=== PATIENT | male | born 1985 | race Caucasian/White ===

== ENCOUNTER 2023-11-08 18:49 | Emergency (ER) | payer SELFPAY ==
[~2023-11-08] VITALS: Ht 167.6 cm; Wt 108.6 kg
[~2023-11-08 18:49] MED LIST: NAPROSYN500 MG PO
[2023-11-08 18:56] VITALS: TEMP 97.4
[2023-11-08] MEDS ORDERED: AMOXICILLIN 50500 MG PO (19:08)
[2023-11-08] MEDS ORDERED: NORCO 325 MG-51 TAB PO (19:08)
[2023-11-08 19:25] VITALS: BP 139/98; PULSE 88
== END 2023-11-08 19:25 | disposition home or self-care (01) ==
LOC: COL.ER 18:49
DX: S02.5XXA Fracture of tooth (traumatic), initial encounter for closed fracture (principal); X58.XXXA Exposure to other specified factors, initial encounter

== ENCOUNTER 2024-01-25 16:12 | Emergency (ER) | payer SELFPAY ==
[~2024-01-25] VITALS: Ht 175.3 cm; Wt 104.5 kg
[~2024-01-25 16:12] MED LIST changes: +AMOXICILLIN 50500 MG PO; +NORCO 325 MG-51 TAB PO
[2024-01-25 16:21] VITALS: TEMP 98.3
[2024-01-25] MEDS ORDERED: Clindamycin 150 MG CAP PO ONE (19:00)
[2024-01-25] MEDS ORDERED: Home HYDROcodone/Acetaminophen 5/325 MG #4 TABS/PACK PO ONE (19:00)
[2024-01-25] MEDS ORDERED: CLEOCIN HCL300 MG PO (19:09)
[2024-01-25 19:37] VITALS: BP 136/92; PULSE 66
== END 2024-01-25 19:38 | disposition home or self-care (01) ==
LOC: COL.ER 16:12
DX: K04.7 Periapical abscess without sinus (principal)